=== PATIENT | male | born 1970 ===

== ENCOUNTER 2017-04-29 09:49 | Emergency (ER) | payer OTHER ==
[2017-04-29 10:23] VITALS: BMI 23.6
[2017-04-29 10:28] VITALS: BP 129/86; PULSE 83; RESP 18; TEMP 98.3; O2SAT 99
[2017-04-29] MEDS ORDERED: Naproxen 550 mg Tab PO STA (10:37)
[2017-04-29] MEDS ORDERED: Naproxen 550 mg Tab PO ONE (10:46)
--- NOTE | 2017-04-29 10:54 | C.PDOC ---
History Of Present Illness Pt injured his right ankle at work yesterday. He was seen by medical at his job and states x-rays were obtained that were negative for fracture. Pt came to ED today because when he woke up this morning swelling had increased. Time Seen by Provider: 04/29/17 10:33 Chief Complaint (Nursing): Lower Extremity Problem/Injury History Per: Patient Onset/Duration Of Symptoms: Days (1), Sudden Onset Current Symptoms Are (Timing): Still Present Severity: Moderate Additional History Per: Prior Records - Ankle/Foot Description Of Injury: Twisted Past Medical History Reviewed: Historical Data, Nursing Documentation, Vital Signs Vital Signs: Last Vital Signs Temp 98.3 F 04/29/17 10:27 Pulse 83 04/29/17 10:27 Resp 18 04/29/17 10:27 BP 129/86 04/29/17 10:27 Pulse Ox 99 04/29/17 10:27 - Medical History PMH: Asthma - [facility] Procedures PSYCHIAT DRUG THERAP NEC (05/25/01) Family History: States: Unknown Family Hx - Social History Hx Alcohol Use: No Hx Substance Use: Yes - Immunization History Hx Tetanus Toxoid Vaccination: Yes Hx Influenza Vaccination: Yes Hx Pneumococcal Vaccination: Yes Review Of Systems Except As Marked, All Systems Reviewed And Found Negative. Constitutional: Negative for: Fever, Weakness Cardiovascular: Negative for: Chest Pain Respiratory: Negative for: Shortness of Breath Gastrointestinal: Negative for: Vomiting, Abdominal Pain Musculoskeletal: Negative for: Neck Pain, Back Pain, Foot Pain Skin: Negative for: Rash Neurological: Negative for: Weakness, Numbness, Seizures, Altered Mental Status Physical Exam - Physical Exam Appears: Non-toxic, No Acute Distress Skin: Normal Color, Warm, Dry, No Rash Head: Atraumatic, Normacephalic Eye(s): bilateral: PERRL, EOMI Neck: Normal ROM, Supple Extremity: Normal ROM, Tenderness (around right lateral maleolus), No Calf Tenderness, Capillary Refill (wnl), No Deformity, Swelling (around right lateral maleolus) Pulses: Right Dorsalis Pedis: Normal Neurological/Psych: Oriented x3, Normal Motor, Normal Sensation ED Course And Treatment O2 Sat by Pulse Oximetry: 99 Pulse Ox Interpretation: Normal Progress Note: Right ankle was placed in stirrup splint and checked by me. Pt was given crutches. Reassessment Condition: Improved Disposition Counseled Patient/Family Regarding: Diagnosis, Need For Followup, Rx Given - Disposition Disposition: HOME/ ROUTINE Disposition Time: 10:55 Condition: STABLE Additional Instructions: Keep right ankle in the splint provided. Use crutches to stay off right foot. Follow up with an orthopedic doctor for further evaluation and treatment. Return to the ER if you develop worsening of symptoms or if you have any other concerns. Prescriptions: Naproxen [Naprosyn] 1 tab PO BID PRN #20 tab PRN Reason: Pain Instructions: Ankle Stirrup Splint (ED), Crutch Instructions (ED) Forms: [employer] (Dutch) - Clinical Impression Clinical Impression: Right ankle sprain
== END 2017-04-29 11:20 | disposition home or self-care (01) ==
LOC: C.ER 09:49
DX: S93.401A Sprain of unspecified ligament of right ankle, initial encounter (principal); X50.1XXA Overexertion from prolonged static or awkward postures, initial encounter; Y93.89 Activity, other specified; Y92.89 Other specified places as the place of occurrence of the external cause
CPT/HCPCS: 97116; 97161; 99284; G8978; G8979; G8980

== ENCOUNTER 2017-05-23 16:17 | Emergency (ER) | payer SELFPAY ==
[2017-05-23 16:17] VITALS: BMI 23.6
--- NOTE | 2017-05-23 16:44 | C.PDOC ---
History Of Present Illness 46-YEAR-OLD MALE, PRESENTS TO THE EMERGENCY DEPARTMENT WITH COMPLAINTS OF SORE THROAT X 3 DAYS. R EAR PAIN SINCE YEST. NO FEVER, OTHER ASSOC SX. EXAM NAD HEENT B/L TM CLEAR; +MILD PHARYNGEAL ERYTHEMA, MILD R TONSIL SWELL. NO EXUDATE. NO CERV NODES. Time Seen by Provider: 05/23/17 16:38 Chief Complaint (Nursing): ENT Problem History Per: Patient History/Exam Limitations: no limitations Onset/Duration Of Symptoms: Days Current Symptoms Are (Timing): Still Present Location Of Pain: Throat Past Medical History Reviewed: Historical Data, Nursing Documentation, Vital Signs Vital Signs: Last Vital Signs Temp 99.4 F 05/23/17 16:39 Pulse 88 05/23/17 16:39 Resp 18 05/23/17 16:39 BP 154/88 H 05/23/17 16:39 Pulse Ox 96 05/23/17 16:44 - Medical History PMH: Asthma Denies: Chronic Kidney Disease - [facility] Procedures PSYCHIAT DRUG THERAP NEC (05/25/01) Family History: States: No Known Family Hx - Social History Hx Alcohol Use: No Hx Substance Use: Yes - Immunization History Hx Tetanus Toxoid Vaccination: Yes Hx Influenza Vaccination: Yes Hx Pneumococcal Vaccination: Yes Review Of Systems Constitutional: Negative for: Fever ENT: Positive for: Ear Pain (RIGHT), Throat Pain Gastrointestinal: Negative for: Nausea, Vomiting Skin: Negative for: Rash Neurological: Negative for: Headache, Dizziness Physical Exam - Physical Exam Skin: Warm, Dry, No Rash Head: Atraumatic Eye(s): bilateral: Normal Inspection Ear(s): Bilateral: Normal Nose: Normal Oral Mucosa: Moist Lips: Normal Appearing Throat: Other ( +MILD PHARYNGEAL ERYTHEMA, MILD R TONSIL SWELL. NO EXUDATE. ) Neck: Normal ROM, Supple (NO CERV NODES) Cardiovascular: Rhythm Regular, No Murmur Respiratory: Normal Breath Sounds, No Accessory Muscle Use, No Rales, No Rhonchi , No Wheezing Extremity: Normal ROM Neurological/Psych: Oriented x3, Normal Speech ED Course And Treatment O2 Sat by Pulse Oximetry: 96 Disposition Counseled Patient/Family Regarding: Diagnosis, Need For Followup, Rx Given - Disposition Referrals: YOUR,PMD [Other] Disposition: HOME/ ROUTINE Disposition Time: 16:43 Condition: IMPROVED Prescriptions: Dexamethasone [Decadron] 8 mg PO ONCE #2 tab Instructions: Pharyngitis (ED) Forms: [employer] (Mozambican) - Clinical Impression Clinical Impression: Pharyngitis - Scribe Statement The provider has reviewed the documentation as recorded by the Scribe (Blanca Martínez) All medical record entries made by the Scribe were at my direction and personally dictated by me. I have reviewed the chart and agree that the record accurately reflects my personal performance of the history, physical exam, medical decision making, and the department course for this patient. I have also personally directed, reviewed, and agree with the discharge instructions and disposition.
[2017-05-23 17:09] VITALS: BP 154/88; PULSE 88; RESP 18; TEMP 99.4; O2SAT 96
== END 2017-05-23 17:04 | disposition home or self-care (01) ==
LOC: C.ER 16:17
DX: J02.9 Acute pharyngitis, unspecified (principal)

== ENCOUNTER 2018-01-13 14:28 | Emergency (ER) | payer OTHER ==
[2018-01-13 14:41] VITALS: BMI 22.8
[2018-01-13 14:49] VITALS: RESP 18; O2SAT 99
[2018-01-13] MEDS ORDERED: Sodium Chloride 0.9% 1,000 ML IV ONE (14:57)
--- NOTE | 2018-01-13 15:06 | C.PDOC ---
History Of Present Illness 47 y/o male with history of HEP C presents to ED with c/o of abdominal pain associated with vomiting and diarrhea for 3 days. Patient states he was at work today and was sent home for symptoms. Patient was going to see PMD Dr. Palomino but office was closed which prompted visit to ED. Patient admits to dysuria and denies back pain, hematuria, fever or chills. Time Seen by Provider: 01/13/18 14:49 Chief Complaint (Nursing): GI Problem History Per: Patient History/Exam Limitations: no limitations Onset/Duration Of Symptoms: Days Current Symptoms Are (Timing): Still Present Past Medical History Reviewed: Historical Data, Nursing Documentation, Vital Signs Vital Signs: Last Vital Signs Temp 98.8 F 01/13/18 16:25 Pulse 64 01/13/18 16:25 Resp 18 01/13/18 16:25 BP 132/81 01/13/18 16:25 Pulse Ox 99 01/13/18 16:26 - Medical History PMH: Asthma, Bipolar Disorder, Schizophrenia Surgical History: No Surg Hx - [facility] Procedures PSYCHIAT DRUG THERAP NEC (05/25/01) Family History: States: No Known Family Hx - Social History Hx Alcohol Use: Yes Hx Substance Use: Yes (Methadone 25mg daily) - Immunization History Hx Tetanus Toxoid Vaccination: Yes Hx Influenza Vaccination: Yes (2017) Hx Pneumococcal Vaccination: Yes Review Of Systems Constitutional: Negative for: Fever, Chills Gastrointestinal: Positive for: Vomiting, Abdominal Pain, Diarrhea Genitourinary: Positive for: Dysuria. Negative for: Hematuria Musculoskeletal: Negative for: Back Pain Skin: Negative for: Rash Physical Exam - Physical Exam Appears: Non-toxic, No Acute Distress Skin: Warm, Dry, No Rash, Other (multiple tattoos) Head: Atraumatic, Normacephalic Eye(s): bilateral: Normal Inspection, EOMI Oral Mucosa: Moist Neck: Normal ROM, Supple Chest: Symmetrical Cardiovascular: Rhythm Regular, No Murmur Respiratory: Normal Breath Sounds, No Rales, No Rhonchi, No Wheezing Gastrointestinal/Abdominal: Soft, No Tenderness, No Guarding, No Rebound Extremity: Normal ROM, Capillary Refill (<2 seconds) Neurological/Psych: Oriented x3, Normal Speech Gait: Steady ED Course And Treatment - Laboratory Results Result Diagrams: 01/13/18 15:12 01/13/18 15:12 Lab Interpretation: No Acute Changes O2 Sat by Pulse Oximetry: 99 (RA) Pulse Ox Interpretation: Normal Medical Decision Making Medical Decision Making: Impression: Abd pain, vomiting and diarrhea Plan: * blood work * ua * zofran * protonix * IV fluids Progress: Labs reviewed and overall within normal limits, slight elevation of LFTs known history of hepatitis C. Patient re-evaluated and was laying comfortable on stretcher in no distress. Discussed results with patient, and copy of lab report was provided. On re-examination, patient is resting comfortably in no acute distress. Patient reports improvement of symptoms. Patient feels comfortable going home and will be discharged. Patient given follow up instructions. Instructed to return to ER if symptoms worsen or new symptoms arise. Disposition Counseled Patient/Family Regarding: Diagnosis, Need For Followup, Rx Given - Disposition Referrals: Natasha Palomino MD [Staff Provider] - Disposition: HOME/ ROUTINE Disposition Time: 16:21 Condition: IMPROVED Additional Instructions: Rx sent to [facility]. Drink fluids to prevent dehydration. Take Zofran as prescribed. Try low-fat diet with increase in fluids such as sport drink, gelatin. Try soup, rice, bread, crackers, cereal, bananas to help with diarrhea. Avoid high sugar foods or drinks (soda and juice) , fatty foods Prescriptions: Ondansetron ODT [Zofran ODT] 1 odt PO BID PRN #6 odt PRN Reason: Nausea/Vomiting Pantoprazole Sodium [Protonix] 20 mg PO DAILY #20 ect Instructions: Acute Abdomen (Belly Pain), Adult (DC) Forms: [employer] (German) - POA Present On Arrival: None - Clinical Impression Clinical Impression: Gastroenteritis - PA / DIESEL DINKEY OPERATOR / Resident Statement / has reviewed & agrees with the documentation as recorded. - Scribe Statement The provider has reviewed the documentation as recorded by the Vickie Mariano All medical record entries made by the Vickie were at my direction and personally dictated by me. I have reviewed the chart and agree that the record accurately reflects my personal performance of the history, physical exam, medical decision making, and the department course for this patient. I have also personally directed, reviewed, and agree with the discharge instructions and disposition.
[2018-01-13 15:21] LABS: BASO % 0.4 % (0.0-2.0); EOS % 0.1 % (0.0-4.0); HEMOGLOBIN 14.7 g/dL (12.0-18.0); LYMPH # 1.3 K/uL (1.0-4.3); LYMPH % 17.3 % (20.0-40.0); MEAN CELL VOLUME 90.1 fL (80.0-94.0); MEAN CORPUSCULAR HEMOGLOBIN 31.2 pg (27.0-31.0); MEAN CORPUSCULAR HGB CONC 34.6 g/dL (33.0-37.0); MONO # 0.4 K/uL (0.0-0.8); MONO % 5.5 % (0.0-10.0); NEUT # 5.8 K/uL (1.8-7.0); NEUT % 76.7 % (50.0-75.0); RBC 4.72 Mil/uL (4.40-5.90); RED CELL DISTRIBUTION WIDTH 13.7 % (11.5-14.5); WHITE BLOOD COUNT 7.6 K/uL (4.8-10.8)
[2018-01-13 15:23] LABS: SQUAMOUS EPITHIAL < 1 /hpf (0-5); URINE BILIRUBIN NEGATIVE (NEGATIVE); URINE BLOOD NEGATIVE (NEGATIVE); URINE CLARITY Clear (Clear); URINE COLOR Yellow (YELLOW); URINE GLUCOSE (UA) NORMAL (Normal); URINE LEUKOCYTE ESTERASE NEG Leu/uL (Negative); URINE PROTEIN NEGATIVE (NEGATIVE); URINE UROBILINOGEN NORMAL mg/dL (0.2-1.0)
[2018-01-13 15:32] LABS: ALB/GLOB RATIO 1.2 (1.0-2.1); ALBUMIN 4.2 g/dL (3.5-5.0); ALT/SGPT 81 U/L (21-72); AST/SGOT 62 U/L (17-59); BLOOD UREA NITROGEN 15 mg/dL (9-20); CALCIUM 9.1 mg/dl (8.6-10.4); GFR AFRICAN-AMERICAN > 60; GFR NON-AFRICAN AMERICAN > 60; LIPASE 34 U/L (23-300)
[2018-01-13] MEDS ORDERED: Sodium Chloride 0.9% 1,000 ML ONE (15:40)
[2018-01-13 16:26] VITALS: BP 132/81; PULSE 64; TEMP 98.8
== END 2018-01-13 16:38 | disposition home or self-care (01) ==
LOC: C.ER 14:28
DX: K52.9 Noninfective gastroenteritis and colitis, unspecified (principal)
CPT/HCPCS: 80053; 81001; 83690; 85025; 96361; 96374; 96375; 99285; C9113; J2405; J7040

== ENCOUNTER 2018-05-06 10:34 | Emergency (ER) | payer OTHER ==
[2018-05-06 10:47] VITALS: BMI 23.4
[2018-05-06] MEDS ORDERED: Tdap Vaccine 0.5 ml Vial (10-64 yrs) IM ONE (11:17)
[2018-05-06] MEDS ORDERED: Naproxen 550 mg Tab PO STA (11:18)
[2018-05-06] MEDS ORDERED: Bacitracin 500 Units/gm Oint Foilpak UD TOP ONE (11:21)
--- NOTE | 2018-05-06 11:37 | C.PDOC ---
History Of Present Illness 47 year old male presents to the ED complaining of left lower leg pain that started yesterday after a metal lid fell onto his leg at work. He notes there was some bleeding at the time. Patient iced and elevated the leg, but noted some swelling today which prompted him to come in. Patient reports taking Motrin for the pain. No change in sensation. Pain is aggravated by movement. Time Seen by Provider: 05/06/18 11:04 Chief Complaint (Nursing): Lower Extremity Problem/Injury History Per: Patient History/Exam Limitations: no limitations Onset/Duration Of Symptoms: Days Current Symptoms Are (Timing): Still Present Past Medical History Reviewed: Historical Data, Nursing Documentation, Vital Signs Vital Signs: Last Vital Signs Temp 99.7 F H 05/06/18 11:54 Pulse 74 05/06/18 11:54 Resp 20 05/06/18 11:54 BP 137/89 05/06/18 11:54 Pulse Ox 96 05/06/18 11:54 - Medical History PMH: Asthma, Bipolar Disorder, Schizophrenia Denies: Chronic Kidney Disease - [facility] Procedures PSYCHIAT DRUG THERAP NEC (05/25/01) Family History: States: Unknown Family Hx - Social History Hx Alcohol Use: Yes Hx Substance Use: Yes (Methadone 25mg daily) - Immunization History Hx Tetanus Toxoid Vaccination: Yes Hx Influenza Vaccination: Yes (2017) Hx Pneumococcal Vaccination: Yes Physical Exam - Physical Exam Appears: Non-toxic, No Acute Distress Skin: Normal Color, Warm, Dry Head: Atraumatic, Normacephalic Eye(s): bilateral: Normal Inspection, EOMI Nose: Normal Oral Mucosa: Moist Neck: Supple Chest: Symmetrical Respiratory: No Accessory Muscle Use Extremity: Normal ROM, Tenderness (to the left lateral calf), Capillary Refill ( less than 2 sec to left lower extremity), No Deformity, Swelling (and superficial abrasions to the left lateral calf), Other (No pallor) Pulses: Left Dorsalis Pedis: Normal, Right Dorsalis Pedis: Normal Neurological/Psych: Oriented x3, Normal Motor, Normal Sensation ED Course And Treatment - Other Rad X-Ray Left Tib/Fib X-Ray: Viewed By Me, Read By Radiologist Interpretation: No fx or dislocation Progress Note: X-ray of left tib/fib taken, and is negative for acute fracture or dislocation. Wound cleansed and dressed. Tetanus is up to date. GUILLERMO wrap applied to left lower extremity by CP. Patient instructed to follow up with PMD for further evaluation in 1-2 days. Disposition Counseled Patient/Family Regarding: Studies Performed, Diagnosis, Need For Followup - Disposition Referrals: Wallace Bonilla III, MD [Staff Provider] - Disposition: HOME/ ROUTINE Disposition Time: 11:36 Condition: STABLE Additional Instructions: Rest, ice and elevate the area. Follow up with your doctor in 1-2 days. Instructions: Contusion (DC) Forms: [employer] (Albanian), Work Excuse - Clinical Impression Clinical Impression: Contusion, lower leg - PA / BUYER ASSISTANT / Resident Statement MD/DO has reviewed & agrees with the documentation as recorded. - Scribe Statement The provider has reviewed the documentation as recorded by the Scribe (Alana Blackwell) All medical record entries made by the Scribe were at my direction and personally dictated by me. I have reviewed the chart and agree that the record accurately reflects my personal performance of the history, physical exam, medical decision making, and the department course for this patient. I have also personally directed, reviewed, and agree with the discharge instructions and disposition.
[2018-05-06] MEDS ORDERED: Bacitracin 500 Units/gm Oint Foilpak UD ONE (11:50)
[2018-05-06 11:55] VITALS: BP 137/89; PULSE 74; RESP 20; TEMP 99.7; O2SAT 96
--- NOTE | 2018-05-06 14:38 | RAD ---
Left tibia and fibula three views History: Trauma. Comparison: None available. Findings: Enthesopathic change at the superior bony patella. Productive change at the anterior tibial tubercle. Narrowing of the tibiotalar joint space. Rounded ossific density distal to the fibula which may represent chronic avulsion injury versus accessory ossicle. Clinical correlation. Some patchy sclerosis seen within the distal fibula, nonspecific. Clinical correlation. Mild productive change along the medial cortex of the talus near the articulation with the medial tibia, nonspecific. Impression: Enthesopathic change at the superior bony patella. Productive change at the anterior tibial tubercle. Narrowing of the tibiotalar joint space. Rounded ossific density distal to the fibula which may represent chronic avulsion injury versus accessory ossicle. Clinical correlation. Some patchy sclerosis seen within the distal fibula, nonspecific. Clinical correlation. Mild productive change along the medial cortex of the talus near the articulation with the medial tibia, nonspecific. If pain persists, consider MRI.
== END 2018-05-06 11:55 | disposition home or self-care (01) ==
LOC: C.ER 10:34
DX: S80.12XA Contusion of left lower leg, initial encounter (principal); W22.8XXA Striking against or struck by other objects, initial encounter; Y92.89 Other specified places as the place of occurrence of the external cause; Y99.0 Civilian activity done for income or pay